=== PATIENT | male | born 1980 | race Caucasian/White ===

== ENCOUNTER 2021-02-07 19:01 | Emergency (ER) | payer BC, SELFPAY ==
[2021-02-07 19:12] VITALS: BP 132/85; PULSE 79; RESP 15; TEMP 36.6; O2SAT 98; BMI 27.8
--- NOTE | 2021-02-07 20:38 | HMH.EDWNDL ---
ED Disposition Clinical Impression: Laceration of finger Qualifiers: Encounter type: initial encounter Finger: middle finger Damage to nail status: with damage Foreign body presence: without foreign body Laterality: left Qualified Code(s): S61.313A - Laceration without foreign body of left middle finger with damage to nail, initial encounter Disposition: Home, Self-Care Condition on Discharge: Good Instructions: DI for Laceration Repair Additional Instructions: sutures out 12-14 days and recheck if any problems Prescriptions: cephALEXin [cephALEXin 500mg capsule*] 500 mg PO TID #30 cap Prescription Printed Referrals: Cortez Velasquez MD [Primary Care Provider] - - Critical Care Critical Care Time: No Attestation: On 02/07/21, the high probability of a clinically significant, sudden or life threatening deterioration of the following system(s) required my full and direct attention, intervention and personal management. The time I documented below is in addition to time spent performing reported procedures but includes the following listed in this critical care notation. Medical Decision Making - Medical Records Medical records reviewed: Yes: I reviewed the patient's medical records. - [place] Inquiry Pt receiving controlled substance: No Vital Signs: 02/07/21 19:12 Temperature 97.8 F Temperature Source Oral Pulse Rate [Right Brachial] 79 Respiratory Rate 15 Blood Pressure [Right Arm] 132/85 Blood Pressure Mean [Right Arm] 100 Blood Pressure Source [Right Arm] Automatic Cuff Blood Pressure Position [Right Arm] Sitting 02 Sat by Pulse Oximetry 98 Oxygen Delivery Method Room Air - Lab Data Lab results reviewed: Yes: I reviewed the patient's lab results. Orders (Tests/Meds): ED MEDICATIONS Discontinued Medications Generic Name Dose Route Start Last Admin Trade Name Pola PRN Reason Stop Dose Admin Acetaminophen/Codeine Phosphate 1 shilpi 02/07/21 20:44 Acetaminophen 300mg W/Codeine 30mg Take Home Pack (6) PO 02/07/21 20:45 ONCE ONE Ceftriaxone Sodium 1 gm 02/07/21 20:43 Ceftriaxone 1gm Vial IM 02/07/21 21:12 ONCE ONE Protocol Ceftriaxone Sodium 1 gm 02/07/21 20:43 Ceftriaxone 1gm Vial IM 02/07/21 20:44 ONCE ONE Protocol Lidocaine HCl 0 ml 02/07/21 20:43 Lidocaine 1% 5ml Pf Vial IM 02/07/21 20:44 ONCE ONE Tetanus/Diphtheria Toxoids 0.5 ml 02/07/21 20:43 Tetanus-Diphth Toxoid, Adult 0.5ml Syr IM 02/07/21 20:44 .ONCE ONE ORDERS Category Date Time Status XR hand LT min 3V Stat Exams 02/07/21 20:48 Taken Wound/Laceration HPI - General Chief Complaint: Wound/Laceration Stated Complaint: cut L finger on chainsaw 1829 Time Seen by Provider: 02/07/21 20:00 Mode of Arrival: Family Vehicle Source of Information: Patient, Spouse, Medical Record Limitations: No Limitations Description of Symptoms (Recalled from ER Triage Doc. by RN): laceration to 3rd finger from accidentally grabbing running chainsaw. small superficial lac to thumb and index finger noted. - History of Present Illness HPI narrative: lac lt hand 2 cm lt 3rd finger with chainsaw at home Onset (ago): hour(s) Extremity Location: Left: hand Place: home Patient tetanus UTD: No Context: accidental Associated symptoms: none - Related Data Previous Rx's Medication Instructions Recorded cephALEXin [cephALEXin 500mg 500 mg PO TID #30 cap 02/07/21 capsule*] Allergies Allergy/AdvReac Type Severity Reaction Status Date / Time No Known Allergies Allergy Verified 02/07/21 20:41 [facility] History - Hepatitis A Screen Drug use history?: No High risk sexual behaviors?: No History of sexually transmitted infection?: No Currently employed?: No Childcare worker?: No Do you have indoor plumbing?: Yes Do you have electricity?: Yes Attestation statement:: This patient has been screened for Hepatitis A risk factors. I have reviewed the patient'
--- NOTE | 2021-02-07 20:48 | XR_ITS ---
PROCEDURE INFORMATION: Exam: XR Left Hand Exam date and time: 02/07/21 08:48 PM Age: 40 years old Clinical indication: Injury or trauma; Other: Laceration to left middle finger by chainsaw; Bleeding/hemorrhage and laceration; Injury date: 02/07/21; Injury details: Laceration to left middle finger caused by chainsaw. ; Additional info: Left hand injury. TECHNIQUE: Imaging protocol: XR Left hand. Views: 3 or more views. COMPARISON: No relevant prior studies available. FINDINGS: Bones/joints: Normal. No fracture or incision adjacent to the soft tissue laceration. Soft tissues: Soft tissue laceration 3rd digit. IMPRESSION: Soft tissue laceration 3rd digit middle phalanx.
[2021-02-07 21:21] VITALS: BP 128/75; PULSE 68; RESP 16; TEMP 36.6; O2SAT 99
== END 2021-02-07 21:22 | disposition home or self-care (01) ==
PROVIDERS: Emergency Provider Student in an Organized Health Care Education/Training Program; PCP Family Medicine
DX: S61.313A Laceration without foreign body of left middle finger with damage to nail, initial encounter (principal); W31.2XXA Contact with powered woodworking and forming machines, initial encounter; Y92.018 Other place in single-family (private) house as the place of occurrence of the external cause; Z23 Encounter for immunization
CPT/HCPCS: 12001; 73130; 90714; 96372; 99282

== ENCOUNTER → 2022-06-27 10:56 | Outpatient (CLI) | payer BC, SELFPAY ==
--- NOTE | 2022-06-27 11:08 | XR_ITS ---
FINAL REPORT CLINICAL HISTORY: HIP PAIN, PAIN AFTER JUMPING WRONG ON INFLATABLE FINDINGS: LEFT HIP Two views of the left hip demonstrate no acute fracture or dislocation. The joint spaces appear normal. The visualized bony structures are well aligned. There is a calcification along the lateral border of the superior acetabulum of uncertain significance but could represent sequela of prior injury. IMPRESSION: No acute fracture or dislocation. Calcification along the lateral border of the superior acetabulum of uncertain significance but could represent sequela of prior injury. Reviewed, Interpreted and Dictated by Gilmar Moralez III, MD Transcribed by Gertrude Holt Authenticated and [facility]
== END ==
PROVIDERS: PCP Family Medicine; Visit Provider Family Medicine
DX: M25.552 Pain in left hip (principal)
CPT/HCPCS: 73502